=== PATIENT | male | born 1975 | race Caucasian/White ===

== ENCOUNTER 2022-01-03 12:02 | Observation (INO) | payer BC ==
[~2022-01-03] VITALS: Ht 177.8 cm; Wt 124.0 kg
[2022-01-03 12:57] LABS: BASO # 0.1 K/mm3 (0.0-0.2); EOS # 0.2 K/mm3 (0.0-0.7); EOS % 2.1 % (0.0-4.0); GRAN # 7.5 K/mm3 (1.4-6.5); GRAN % 65.9 % (42.2-75.2); HEMATOCRIT 44.4 % (42.0-52.0); HEMOGLOBIN 15.2 g/dl (13.5-18.0); LYMPH # 2.8 K/mm3 (1.2-3.4); LYMPH % 24.5 % (20.0-51.0); MEAN CELL VOLUME 87 fl (80.0-100.0); MEAN CORPUSCULAR HEMOGLOBIN 30 pg (27-31); MEAN CORPUSCULAR HGB CONC 34 g/dl (33.0-37.0); MEAN PLATELET VOLUME 9.1 fl (7.4-10.4); MONO # 0.7 K/mm3 (0.1-0.6); MONO % 5.9 % (1.7-9.3); PLATELET COUNT 263 K/mm3 (130-400); RED BLOOD COUNT 5.08 M/mm3 (4.20-5.60); REDCELL DISTRIBUTION WIDTH-CV 13.2 % (11.5-14.5)
[2022-01-03 13:06] LABS: PROTHROMBIN TIME 11.2 SECONDS (9.7-12.8)
[2022-01-03 13:11] LABS: ALBUMIN 3.7 gm/dL (3.5-5.0); BILIRUBIN,TOTAL 0.7 mg/dL (0.2-1.2); CALCIUM 8.8 mg/dL (8.4-10.2); CREATININE, serum 0.87 mg/dL (0.72-1.25); POTASSIUM 4.2 mmol/L (3.5-4.5); TOTAL PROTEIN 6.8 gm/dL (6.2-8.1)
[2022-01-03 13:24] LABS: TROPONIN-I 0.05 ng/mL (0.00-0.033)
[2022-01-03] MEDS ORDERED: NEURONTIN300 MG/CAP PO (16:11)
[2022-01-03 16:51] VITALS: BP 146/87; PULSE 82; TEMP 97.9
--- NOTE | 2022-01-03 18:00 | NUR ---
Pt arrived to the floor, A/O x4. His breathing is even and unlabored on RA. Pt denies any SOB, intermittent cough present. Pt's pain is well controlled at this time. IV patent. POC discussed with patient who verbalizes understanding. No needs at this time. Call light within reach.
[2022-01-03 19:51] VITALS: BP 144/90; PULSE 87; TEMP 97.9
[2022-01-03 21:42] LABS: HEMATOCRIT 41.1 % (42.0-52.0); HEMOGLOBIN 13.6 g/dl (13.5-18.0)
[2022-01-04 00:15] VITALS: BP 136/88; PULSE 78; TEMP 97.8
[2022-01-04 04:08] VITALS: BP 126/78; PULSE 72; TEMP 97.7
--- NOTE | 2022-01-04 06:03 | NUR ---
PATIENT REPORTED PAIN A 9/10. CONTACTED SEJAL BAR APRN. NEW PAIN MEDICATION ORDERED AND ADMINISTERED. PATIENT REPORTED PAIN RELIEF AND ABLE TO GO TO SLEEP. PAIN LEVEL A 2/10 AT THIS TIME.
[2022-01-04 06:34] LABS: BASO # 0.1 K/mm3 (0.0-0.2); BASO % 1.1 % (0.0-2.0); EOS # 0.2 K/mm3 (0.0-0.7); GRAN # 5.4 K/mm3 (1.4-6.5); GRAN % 64.8 % (42.2-75.2); HEMATOCRIT 42.6 % (42.0-52.0); HEMOGLOBIN 14.2 g/dl (13.5-18.0); LYMPH # 2.1 K/mm3 (1.2-3.4); LYMPH % 24.9 % (20.0-51.0); MEAN CELL VOLUME 90 fl (80.0-100.0); MEAN CORPUSCULAR HEMOGLOBIN 30 pg (27-31); MEAN CORPUSCULAR HGB CONC 33 g/dl (33.0-37.0); MEAN PLATELET VOLUME 9.7 fl (7.4-10.4); MONO # 0.6 K/mm3 (0.1-0.6); MONO % 6.6 % (1.7-9.3); PLATELET COUNT 221 K/mm3 (130-400); RED BLOOD COUNT 4.73 M/mm3 (4.20-5.60); REDCELL DISTRIBUTION WIDTH-CV 13.2 % (11.5-14.5)
[2022-01-04 06:46] LABS: CALCIUM 8.2 mg/dL (8.4-10.2); CREATININE, serum 0.81 mg/dL (0.72-1.25); POTASSIUM 4.6 mmol/L (3.5-4.5)
[2022-01-04 08:17] VITALS: BP 132/65; PULSE 77; TEMP 98.4
--- NOTE | 2022-01-04 08:50 | NUR ---
PT WALKING AROUND ROOM. PT STATES THAT HE IS HAVING SOME INCREASED PAIN AND HIS BRUISING HAS EXTENDED OVER THE MARKED LINE. PT IS ALSO HAVING INCREASED SOB. DR. PEÑALOZA IN FLOOR AND WAS NOTIFIED. CT SCAN WILL BE GOTTEN. PT STATES NO OTHER NEEDS OR COMPLAINTS AT THIS TIME. CALL LIGHT IS WITHIN REACH.
[2022-01-04] MEDS ORDERED: NORVASC 5MG5 MG/TAB PO (08:51)
[2022-01-04] MEDS ORDERED: PRINIVIL20 MG PO (08:51)
[2022-01-04] MEDS ORDERED: TESSALON P100 MG/CAP PO (08:52)
--- NOTE | 2022-01-04 09:19 | NUR ---
First visit from the supervisor wet room. No needs right now.
--- NOTE | 2022-01-04 09:54 | NUR ---
Social Work student met with patient to discuss discharge planning. Patient lives in [place] with his , Keya(ph#[phone]). Patient sees Dr. Clark for primary care, and he receives his medications from [facility]. Patient verbalized that he has some trouble affording his blood pressure medication at times. Patient states that he uses a cane every once in awhile to aid his ankle, but he is fully independent with his ADL's. Patient states he has not filled out a DPOA-HC prior to his current stay at the hospital. Patient stated that he would be interested in filling one out. SW student gave a blank DPOA-HC sheet to patient and he has decided to take it home with him. *Discharge plan: Home*
== END 2022-01-04 11:35 | disposition home or self-care (01) ==
LOC: COL.ER 12:02 → MEDICAL 14:54
PROVIDERS: Physician Assistant; ADMIT Internal Medicine
DX: I16.0 Hypertensive urgency (principal); S36.92XA Contusion of unspecified intra-abdominal organ, initial encounter; R05.9 Cough, unspecified; M47.816 Spondylosis without myelopathy or radiculopathy, lumbar region; K57.90 Diverticulosis of intestine, part unspecified, without perforation or abscess without bleeding; K63.89 Other specified diseases of intestine; E66.9 Obesity, unspecified; F17.210 Nicotine dependence, cigarettes, uncomplicated; Z79.899 Other long term (current) drug therapy; Z20.822 Contact with and (suspected) exposure to COVID-19
CPT/HCPCS: G0378; J2270; J2405; J3010; J7030; Q9967

== ENCOUNTER 2022-02-08 09:35 | Emergency (ER) | payer BC, MEDICAID ==
[~2022-02-08] VITALS: Ht 177.8 cm; Wt 127.3 kg
[~2022-02-08 09:35] MED LIST: NEURONTIN300 MG/CAP PO; NORVASC 5MG5 MG/TAB PO; PRINIVIL20 MG PO; TESSALON P100 MG/CAP PO
[2022-02-08 10:36] LABS: BASO # 0.1 K/mm3 (0.0-0.2); BASO % 0.7 % (0.0-2.0); EOS # 0.2 K/mm3 (0.0-0.7); EOS % 1.9 % (0.0-4.0); GRAN # 7.9 K/mm3 (1.4-6.5); GRAN % 71.1 % (42.2-75.2); HEMATOCRIT 44.4 % (42.0-52.0); HEMOGLOBIN 14.7 g/dl (13.5-18.0); LYMPH # 2.2 K/mm3 (1.2-3.4); LYMPH % 19.9 % (20.0-51.0); MEAN CELL VOLUME 90 fl (80.0-100.0); MEAN CORPUSCULAR HEMOGLOBIN 30 pg (27-31); MEAN CORPUSCULAR HGB CONC 33 g/dl (33.0-37.0); MEAN PLATELET VOLUME 9.4 fl (7.4-10.4); MONO # 0.7 K/mm3 (0.1-0.6); MONO % 6.1 % (1.7-9.3); PLATELET COUNT 227 K/mm3 (130-400); RED BLOOD COUNT 4.92 M/mm3 (4.20-5.60); REDCELL DISTRIBUTION WIDTH-CV 13.4 % (11.5-14.5)
[2022-02-08 10:54] LABS: ALBUMIN 3.7 gm/dL (3.5-5.0); BILIRUBIN,TOTAL 0.5 mg/dL (0.2-1.2); C-REACTIVE PROTEIN 0.89 mg/dL (0.00-0.50); CALCIUM 8.5 mg/dL (8.4-10.2); CREATININE, serum 0.96 mg/dL (0.72-1.25); TOTAL PROTEIN 6.4 gm/dL (6.2-8.1)
[2022-02-08 13:38] LABS: COLLECTION METHOD CLEAN CATCH
[2022-02-08 13:55] LABS: MUCOUS Present (NOT PRESENT); PH 6 (5-8); SQUAMOUS EPITHELIAL None Seen /hpf (0-10); URINE APPEARANCE Clear (CLEAR/HAZY); URINE BACTERIA None Seen /hpf (NONE SEEN); URINE BILIRUBIN Negative (NEGATIVE); URINE BLOOD Negative (NEGATIVE); URINE COLOR Yellow (YELLOW); URINE GLUCOSE Negative (NEGATIVE); URINE KETONE Negative (NEGATIVE); URINE LEUKOCYTE ESTERASE Negative (NEGATIVE); URINE NITRATE Negative (NEGATIVE); URINE PROTEIN(semi-quant) Negative (NEGATIVE); URINE RBC 0-2 /hpf (0-2)
[2022-02-08 14:44] VITALS: BP 159/109; PULSE 84; TEMP 98.7
== END 2022-02-08 14:44 | disposition home or self-care (01) ==
LOC: COL.ER 09:35
PROVIDERS: Nurse Practitioner
DX: R10.11 Right upper quadrant pain (principal); R03.0 Elevated blood-pressure reading, without diagnosis of hypertension; F17.210 Nicotine dependence, cigarettes, uncomplicated; Z28.310 Unvaccinated for COVID-19
CPT/HCPCS: J0360; J1170; J1885; Q9967

== ENCOUNTER 2023-01-01 16:15 | Emergency (ER) | payer MEDICARE, MEDICAID ==
[~2023-01-01] VITALS: Ht 177.8 cm; Wt 128.6 kg
[2023-01-01 18:06] LABS: BASO # 0.1 K/mm3 (0.0-0.2); BASO % 0.6 % (0.0-2.0); EOS # 0.1 K/mm3 (0.0-0.7); EOS % 1.1 % (0.0-4.0); GRAN # 7.2 K/mm3 (1.4-6.5); GRAN % 64.1 % (42.2-75.2); HEMATOCRIT 46.2 % (42.0-52.0); HEMOGLOBIN 15.8 g/dl (13.5-18.0); LYMPH % 27.1 % (20.0-51.0); MEAN CELL VOLUME 87 fl (80.0-100.0); MEAN CORPUSCULAR HEMOGLOBIN 30 pg (27-31); MEAN CORPUSCULAR HGB CONC 34 g/dl (33.0-37.0); MONO # 0.8 K/mm3 (0.1-0.6); MONO % 6.8 % (1.7-9.3); PLATELET COUNT 269 K/mm3 (130-400); RED BLOOD COUNT 5.31 M/mm3 (4.20-5.60); REDCELL DISTRIBUTION WIDTH-CV 13.4 % (11.5-14.5)
[2023-01-01 18:18] LABS: ALBUMIN 4.1 gm/dL (3.5-5.0); BILIRUBIN,TOTAL 0.6 mg/dL (0.2-1.2); CALCIUM 9.3 mg/dL (8.4-10.2); CREATININE, serum 0.96 mg/dL (0.72-1.25); POTASSIUM 4.2 mmol/L (3.5-4.5); TOTAL PROTEIN 7.3 gm/dL (6.2-8.1)
[2023-01-01 20:03] VITALS: BP 164/100; PULSE 81; TEMP 98.1
== END 2023-01-01 20:03 | disposition home or self-care (01) ==
LOC: COL.ER 16:15
PROVIDERS: Nurse Practitioner Primary Care
DX: R10.11 Right upper quadrant pain (principal); R11.2 Nausea with vomiting, unspecified; R19.7 Diarrhea, unspecified; K92.1 Melena; I10 Essential (primary) hypertension; D72.829 Elevated white blood cell count, unspecified; F17.200 Nicotine dependence, unspecified, uncomplicated; Z28.310 Unvaccinated for COVID-19
CPT/HCPCS: J1790; J1885; J2405; J7120

== ENCOUNTER → 2023-01-02 | Outpatient (CLI) | payer MEDICARE, MEDICAID | LOC: COL.RAD 05:21 | DX: R10.11 Right upper quadrant pain (principal); R11.2 Nausea with vomiting, unspecified ==

== ENCOUNTER → 2023-06-13 | Outpatient (CLI) | payer MEDICARE ==
[2023-06-13 12:06] LABS: BASO # 0.1 K/mm3 (0.0-0.2); BASO % 0.9 % (0.0-2.0); EOS # 0.2 K/mm3 (0.0-0.7); EOS % 1.7 % (0.0-4.0); GRAN # 6.9 K/mm3 (1.4-6.5); GRAN % 63.6 % (42.2-75.2); HEMATOCRIT 44.7 % (42.0-52.0); HEMOGLOBIN 15.4 g/dl (13.5-18.0); LYMPH % 27.8 % (20.0-51.0); MEAN CELL VOLUME 88 fl (80.0-100.0); MEAN CORPUSCULAR HEMOGLOBIN 30 pg (27-31); MEAN CORPUSCULAR HGB CONC 35 g/dl (33.0-37.0); MEAN PLATELET VOLUME 9.2 fl (7.4-10.4); MONO # 0.6 K/mm3 (0.1-0.6); MONO % 5.4 % (1.7-9.3); PLATELET COUNT 257 K/mm3 (130-400); RED BLOOD COUNT 5.07 M/mm3 (4.20-5.60); REDCELL DISTRIBUTION WIDTH-CV 13.2 % (11.5-14.5)
[2023-06-13 12:15] LABS: BILIRUBIN,TOTAL 0.6 mg/dL (0.2-1.2); C-REACTIVE PROTEIN 0.79 mg/dL (0.00-0.50); CALCIUM 9.4 mg/dL (8.4-10.2); CREATININE, serum 0.91 mg/dL (0.72-1.25); POTASSIUM 3.8 mmol/L (3.5-4.5); TOTAL PROTEIN 7.1 gm/dL (6.2-8.1)
[2023-06-13 12:33] LABS: ERYTHROCYTE SEDIMENTATION RATE 5 mm/hr (0-15)
== END ==
LOC: COL.RAD 11:20 → COL.LAB 11:20
PROVIDERS: Physical Medicine & Rehabilitation Sports Medicine
DX: S22.41XK Multiple fractures of ribs, right side, subsequent encounter for fracture with nonunion (principal); G64 Other disorders of peripheral nervous system; R07.89 Other chest pain

== ENCOUNTER → 2023-06-13 | Outpatient (CLI) | payer MEDICARE | LOC: MHCPAIN 10:11 | DX: R07.89 Other chest pain (principal); S22.41XK Multiple fractures of ribs, right side, subsequent encounter for fracture with nonunion | CPT/HCPCS: G0463 ==

== ENCOUNTER → 2023-07-19 | Outpatient (CLI) | payer MEDICARE | LOC: MHCPAIN 09:55 | DX: R07.89 Other chest pain (principal); S22.41XG Multiple fractures of ribs, right side, subsequent encounter for fracture with delayed healing | CPT/HCPCS: G0463 ==

== ENCOUNTER 2023-09-06 08:08 | Emergency (ER) | payer SELFPAY ==
[~2023-09-06] VITALS: Ht 177.8 cm; Wt 114.5 kg
[2023-09-06 08:38] VITALS: TEMP 97.8
[2023-09-06] MEDS ORDERED: NORCO 325 MG-51 TAB PO (10:01)
[2023-09-06] MEDS ORDERED: FLEXERIL 1010 MG/TAB PO (10:01)
[2023-09-06 10:06] VITALS: BP 161/104; PULSE 78
== END 2023-09-06 10:23 | disposition home or self-care (01) ==
LOC: COL.ER 08:08
DX: R07.81 Pleurodynia (principal); R07.89 Other chest pain; M54.50 Low back pain, unspecified; M54.6 Pain in thoracic spine
CPT/HCPCS: J2270